=== PATIENT | female | born 1945 | race Caucasian/White ===

== ENCOUNTER → 2021-02-23 | Outpatient (CLI) | payer OTHER ==
[~2021-02-23] VITALS: Ht 157.5 cm; Wt 72.6 kg
[~2021-02-23] MED LIST: BIOTIN10 MG PO; MULTI VITAMIN1 EACH PO; PROTONIX40 M2 PO; VITAMIN B-12250 MCG PO; ZOCOR 10 MG TAB10 M1 PO
--- NOTE | 2021-02-23 12:23 | P ---
[facility] [place] [address] PROCEDURE REPORT Name: KITTY DUMONT Room #: REG DHARMESH SinhaAutumn#: [id number] Admission: 02/23/21 Attend Phys: Ubaldo Ku Discharge: Date of : 49 Report #: [id number] THIS REPORT FOR: cc: Liz Araujo MD, Kristin E. MD McElhinney, Christian C. MD ~ cc: Liz Araujo MD DATE OF SERVICE: 02/23/2021 PROCEDURE PERFORMED: Upper endoscopy with biopsies and esophageal dilation. 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 She was seen in the office on 02/01/2021. I recommended repeating upper endoscopy with dilation. She does take Protonix on a daily basis. DESCRIPTION OF PROCEDURE: The risks and benefits of the procedure were explained to the patient, those risks including but not limited to bleeding, perforation and the risk of sedation. She understood these risks and gave informed consent. Sedation was given using propofol per anesthesia. Next, using a standard Olympus upper endoscope, the scope was placed in the patient's mouth and advanced under direct vision through the esophagus, stomach and into the second portion of the duodenum. The larynx was normal in appearance. The upper and mid esophagus was normal. In the distal esophagus at the GE junction, a possible short segment of Valenzuela's was noted. Biopsies were obtained. No evidence of stricture. Upon entering the stomach, a small hiatal hernia was noted. Overall, the gastric mucosa was normal. The pylorus was normal and patent. The duodenal bulb, first and second portion were all normal. The scope was then brought back up into the patient's stomach and a Savary guidewire was inserted through the scope, leaving the guidewire in place as the scope was then withdrawn. Next, a 51-Pashto Savary dilation of the esophagus was then performed without difficulty. The wire and dilator removed. The scope was reintroduced into the patient's esophagus and stomach. There was a mucosal tear noted in the proximal esophagus. No evidence of bleeding. At this point, the scope was then withdrawn and the procedure terminated. The patient tolerated the procedure well. IMPRESSION: 1. Possible short segment Valenzuela's. 2. Small hiatal hernia. 3. Status post dilation of esophagus. RECOMMENDATIONS: 1. Await biopsy results. 2. Continue PPI therapy. [address] [address] PROCEDURE REPORT Name: KITTY DUMONT Room #: REG [facility].#: [id number] Admission: 02/23/21 Attend Phys: Ubaldo Ku Discharge: Date of : 49 Report #: [id number] 3. Observe the patient post-dilation. Thank you for allowing me to participate in her care. <ELECTRONICALLY SIGNED> By: Ubaldo Bran MD 02/23/21 1223 [id number] Ubaldo Bran MD /nt
--- NOTE | 2021-02-28 12:06 | PATH ---
[facility] [place] [address] PATHOLOGY RPT PROCEDURE Name: KEYONA SUMNER Room #: REG DHARMESH Bharath.#: [id number] Admission: 02/23/21 Date of : 49 Discharge: Report #: [id number] Path Case #: [id number] [facility] Accession Number: [id number] . 01 Material submitted: . esophagus - DISTAL ESOPHAGUS BIOPSY- HX OF LAU'S. Modifiers: distal . 01 Clinical history: . ESOPHAGOGASTRODUODENOSCOPY DYSPHAGIA, HIATAL HERNIA . 01 Diagnosis: Squamous and glandular mucosa "distal esophagus biopsy, history of Lau's esophagus": - Reflux esophagitis with reactive squamous and glandular mucosa. - No definite goblet cell metaplasia, dysplasia or malignancy in the sections examined. (See comment) . (SHA:juan; 02/25/2021) [facility] 02/25/2021 1148 Local . 01 Comment: History of Lau's esophagus noted. . (SHA:mml; 02/25/2021) . 01 Electronically signed: . Eric Jamison MD, Pathologist NPI- [id number] . 01 Gross description: . The specimen is received in formalin, labeled "Keyona Sumner, distal esophagus-hx of Lau's". Received are 2 segments of pale kilgore tissue measuring 0.3 and 0.4 cm in maximum dimensions. The specimen is entirely submitted in cassette A1. ([facility]; 02/24/2021) NRI/NRI 02/24/2021 1800 Local . 01 Pathologist provided ICD-10: K21.00 . 01 CPT . 659808 Specimen Comment: A courtesy copy of this report has been sent to [phone], [phone] Specimen Comment: [phone] [address] PATHOLOGY RPT PROCEDURE Name: KEYONA SUMNER Room #: REG DHARMESH AutumnJoshAutumn#: [id number] Admission: 02/23/21 Date of : 49 Discharge: Report #: [id number] Path Case #: [id number] Specimen Comment: Report sent to / DR FUENTES Specimen Comment: A duplicate report has been generated due to demographic updates. Performed at: [address], [place], [place] [id number] MD Eric Jamison MD Phone: [phone]
== END | disposition home or self-care (01) ==
LOC: GI 07:19
PROVIDERS: ATTEND Specialist
DX: K21.00 Gastro-esophageal reflux disease with esophagitis, without bleeding (principal); R13.10 Dysphagia, unspecified; K44.9 Diaphragmatic hernia without obstruction or gangrene; E78.5 Hyperlipidemia, unspecified; Z98.890 Other specified postprocedural states; Z79.899 Other long term (current) drug therapy; Z20.822 Contact with and (suspected) exposure to COVID-19; Z87.891 Personal history of nicotine dependence; Z90.49 Acquired absence of other specified parts of digestive tract; Z98.41 Cataract extraction status, right eye; Z98.42 Cataract extraction status, left eye
CPT/HCPCS: 62110; 62900